=== PATIENT | female | born 1960 | race African-American/Black ===

== ENCOUNTER 2016-10-16 18:17 | Emergency (ER) | payer OTHER ==
[~2016-10-16 18:17] MED LIST: AMOXIL875 MG PO; ATARAX PO; AUGMENTIN PO; CAPOZIDE PO; CIPRO PO; FLEXERIL10 MG PO; HCTZ PO; HYDROCHLOROTHIA25 MG PO; HYDROXYZINE HCL25 M1 PO; IBUPROFEN800 MG PO; LORTAB 5/500 TA1 TA1 PO; MEDROL4 MG/DOSE- PO; METRONIDAZOLE PO; NAPROXEN PO; NORVASC PO; PEPCID AC20 M2 PO; PERMETHRIN60 GM TP; PREDNISONE PO; PYRIDIUM PO; STERAPRED5 MG/DOSE1 PO; TRAMADOL HCL50 M1 PO; ULTRAM PO; UNIVASC7.5 MG PO; VIBRAMYCIN100 M1 PO
== END 2016-10-16 18:20 | disposition home or self-care (01) ==
LOC: CFTX 18:17
DX: M10.9 Gout, unspecified (principal); I10 Essential (primary) hypertension; M19.90 Unspecified osteoarthritis, unspecified site
CPT/HCPCS: 99282

== ENCOUNTER 2016-11-01 16:39 | Inpatient (IN) | payer OTHER ==
--- NOTE | ~2016-11-01 | EKG ---
PATIENT: JEFFERY CAMERON UNIT #: [id number] Ventricular Rate: 91 BPM Atrial Rate: 91 BPM P-R Interval: 164 ms QRS Duration: 70 ms Q-T Interval: 386 ms QTC Calculation(Bezet): 474 ms P [place]: 55 degrees Calculated R [place]: -9 degrees Calculated T [place]: 17 degrees Diagnosis Line: Normal sinus rhythm Diagnosis Line: Normal ECG Diagnosis Line: When compared with ECG of 15-NOV-2012 06:12, Diagnosis Line: No significant change was found Diagnosis Line: Confirmed by FAHAD GALLEGO MD ([id number]) on 11/02/2016 Diagnosis Line: 5:43:01 PM INTERPRETING MD: JULIÁN HEBERT
--- NOTE | ~2016-11-01 | CR72 ---
[facility] A Service of [facility] RADIOLOGY TEXT RESULTS PATIENT: JEFFERY CAMERON LOCATION: [place] [address] : [birth year] UNIT #: [id number] AGE: [address]: Breanna Douglas MD SEX: F ORDER DR: [id number] [facility] [address] [place], [place] [address] [id number] I MR#: [id number] Acc #: [id number] NAME: JEFFERY CAMERON : 1960 SEX: F STUDY DATE/TIME: 11/01/2016 17:05 UNIT: [facility] ROOM: [facility] STUDY DESCRIPTION: CR Chest Single View Portable Attending Physician: Breanna Douglas M.D. Ordering Physician: Ed Doctor [id number] [facility] Primary Care Physician: [facility] MEDICAL IMAGING REPORT This report is preliminary unless electronic signature is present EXAM Single portable chest INDICATION Cough. Nausea and vomiting. Weakness and altered mental status. FINDINGS Single portable AP view of the chest is compared to 06/21/2013. Heart and mediastinal contours are normal. Lungs are clear. No pleural effusion. IMPRESSION Negative chest radiograph. Dictated by... Zeb Lackey M.D. THIS IS AN ELECTRONICALLY VERIFIED REPORT Zeb Lackey M.D. at 11/02/2016 8:39 AM Matthew TD: 11/02/2016 08:27 JOB #: [id number] MEDICAL IMAGING REPORT COPY
--- NOTE | ~2016-11-01 | A ---
[facility] Nutrition Therapy DATE: 11/02/16 Patient: JEFFERY CAMERON Physician: BLANCA Address: [address] [place] [address] Room/Bed: [address], Zip: [place] [address] Admit Date: 11/01/16 Date of : 62 Height: 5 2 Weight: 189 86 NUTRITIONAL ASSESSMENT: REASON: PT SEEN FOR DX, ALSO NPO IN ICU ASSESSMENT PT IS 55 Y.O. FEMALE ADMITTED FOR DKA PMH: NEWLY DIAGNOSED DM, LUPUS, HTN, ASTHMA Anthropometrics: 5'2", WT: 189# (85.9 KG), BMI: 34.6 Labs: GLU: 159, NA+:147, PHOS: 2.1, A1c: 10.8 (REFLECTS POOR GLUCOSE MANAGEMENT) Meds: PEPCID, ZOFRAN, NACL I/O & Bowel function: 2111/ Skin Integrity: NO KNOWN SKIN ISSUES Estimated Nutrition Needs: N/A Assessment: CHART REVIEWED AND EVENTS NOTED. PT SEEN FOR DX. PT CURRENTLY NPO 2' DKA PROTOCOL, INSULIN DRIP. PER RN AND CHART, PT NOTED TO HAVE N/V X 4 DAYS. PT REPORTS APPETITE IMPROVING, WANTING TO EAT. PT DENIES ANY RECENT WEIGHT LOSS. THIS RD PROVIDED WRITTEN AND VERBAL CC DIET EDUCATION. RD LISTED FOODS TO AVOID/LIMIT AND FOODS TO EAT MORE OFTEN. RD EMPHASIZED IMPORTANCE OF CONSUMING CONSISTENT MEAL SCHEDULE W/BALANCED MEALS. PT REPORTS DRINKING GINGERALE DAILY. RD ENCOURAGED PT TO CUT BACK ON GINGERALE AND DRINK MORE WATER, PT AGREED. PT REPORTED NO DIET QUESTIONS AT THIS TIME. RD TO REMAIN AVAILABLE. Dx: IMPAIRED GLYCEMIC CONTROL R/T DX AEB ELEVATED BLOOD SUGAR LEVELS, ELEVATED A1c. -ALTERED NUTRIENT NEEDS R/T DX AEB NPO STATUS, ALTERED LAB VALUES. Intervention: 1. NPO Monitoring, Evaluation and Goals: 1. PO INTAKE; PROVIDE AND CONSUME ADEQUATE NUTRITION W/NO C/O N/V/D (PO>50%) 2. LABS; WNL: GLU MONITOR: -DIET ADVANCEMENT -PO INTAKE/APPETITE -LABS (GLU) [facility] Nutrition Therapy DATE: 11/02/16 Patient: JEFFERY CAMERON Physician: BLANCA Address: [address] [place] [address] Room/Bed: [address], Zip: [place] [address] Admit Date: 11/01/16 Date of : [birth year] Height: 5 2 Weight: 189 86 Recommendations: 1. ONCE MEDICALLY FEASIBLE, ADVANCE DIET INDICATED TO CC 2'DX, ELEVATED BLOOD SUGAR LEVELS 2. CONTINUE TO OPTIMIZE BLOOD SUGAR REGIMEN 3. CONSULT RD IF FURTHER DIET EDUCATION REQUESTED/NEEDED RD WILL F/U PER PROTOCOL PT IS MILD/MODERATELY COMPROMISED Respectfully, FELISHA FLOWER MS, RD, LD Food and Nutritional Services [facility] cc: client file
--- NOTE | ~2016-11-01 | CO ---
Unit #: [id number] #: [id number] Patient: JEFFERY CAMERON [id number] [address] [place], [place] [address] [id number] I MR#: [id number] NAME: JEFFERY CAMERON. ROOM: [facility] Age: 55 Sex: F Admission Date: 11/01/2016 : 1960 Attending Physician: Edith Lan M.D. [facility] CONSULTATION REPORT HISTORY OF PRESENT ILLNESS Ms. Cameron is a pleasant 55-year-old lady with a longstanding history of lupus erythematosus, hypertension, and asthma. For the asthma, she is not taking any medication. She currently takes a burst of prednisone about every 6 months when she has an exacerbation. The patient now presents in significant DKA. She says for the past 3 to 4 days she has been having vomiting, anorexia, not so much diarrhea, positive fatigue, and positive body aches. The patient has not eaten for 3 to 4 days, so she stopped taking her home anti-glucose medications. The patient denies fevers, chills, headache, vision changes, any sort of hemoptysis, hematemesis. No significant shortness of breath. No sore throat. No known sick contacts. The patient is placed on insulin drip without any antibiotics. PAST MEDICAL HISTORY Significant for hypertension, diet-controlled diabetes mellitus, COPD, and bronchial asthma. ALLERGIES The patient has no known medical allergies. HOME MEDICATIONS Include hydrochlorothiazide 25 every morning, ranitidine 150 mg daily, and lisinopril 10 mg daily. REVIEW OF SYSTEMS As per the history of present illness. PAST SURGICAL HISTORY Significant for hysterectomy. FAMILY HISTORY Negative. SOCIAL HISTORY The patient is nonsmoker and nondrinker. No history of recreational substance use. PHYSICAL EXAMINATION VITAL SIGNS: T-current 97.6, pulse 77, respiratory rate 15, blood pressure 143/75, and saturating 98% on 2 L nasal cannula. CHEST: Shows decreased breath sounds bilaterally. CARDIOVASCULAR: Regular rate. No gallop. ABDOMEN: Soft, slightly tender, nondistended. No guarding. No rebound. EXTREMITIES: Show no significant edema. Unit #: [id number] #: [id number] Patient: JEFFERY CAMERON HEENT: Extraocular movements are intact on head. Normocephalic and atraumatic. Pupils are equal, round, and reactive to light. DIAGNOSTIC STUDIES LABORATORY RESULTS: BUN and creatinine of 32 and 1.2, potassium 3.9, bicarbonate 22, glucose 350, CK is 156, phosphorus 4.7, and magnesium is 3.0. Blood gas later today; 7.303, 39.8, and 76.3. Cardiac enzymes negative x2. ASSESSMENT AND PLAN 1. Diabetic ketoacidosis. The patient is on insulin drip. No precipitating event seen. The patient is on lisinopril, this has been held causing her blood pressure be a little high; however, the patient may be dehydrated. Therefore, we will not restart it for concern about mild renal insufficiency. We will monitor blood pressures and hopefully if creatinine improves in the morning, we can restart the medication. 2. Asthma, seems to be at baseline. 3. Lupus, apparently currently quiescent. The patient is following up with an outpatient vamper. Thank you very much for this consult and allowing us to participate in the care of this patient. Dictated by... Angela Kinney/clau TD: 11/02/2016 20:09 JOB #: [id number] CONSULTATION REPORT X Devonte Gant MD CONSULTATION REPORT
--- NOTE | ~2016-11-01 | HP ---
Unit #: [id number] #: [id number] Patient: JEFFERY CAMERON [id number] [facility] [address] [facility]. [place], [place] [address] [id number] I MR#: [id number] NAME: JEFFERY CAMERON. ROOM: [facility] Age: 55 Sex: F Admission Date: 11/01/2016 : 1960 Attending Physician: Breanna Douglas M.D. Primary Care Physician: [facility] HISTORY AND PHYSICAL CHIEF COMPLAINT Nausea, vomiting, weakness since Sunday. HISTORY OF PRESENT ILLNESS The patient is a 55-year-old female with a past medical history of lupus, hypertension, migraine headaches, asthma who presented to the emergency department for evaluation of the above. The patient states that she has not been feeling well since 10/28/2016. She states that she has been feeling increasingly generally weak and tired. She has had nausea and vomiting. She reports three bouts of nonbloody emesis within the past 24 hours. She denies any diarrhea. No abdominal pain. She has had increased thirst, as well as frequent urination. She denies any change in her weight. She denies any cough or cold symptoms. No fever. Upon arrival in the emergency department, the patient's pulse is 86, blood pressure 167/74. Initial blood sugar is 722 with a bicarb of 19, anion gap of 23. She was given 2 L of normal saline and started on an insulin drip. She is being admitted to [facility] for evaluation and further treatment. PAST MEDICAL HISTORY 1. Admission to [facility] 11/14/2012 for chest pain. She underwent a stress test that was negative. 2. Hypertension. 3. Lupus followed by [facility]. The patient states that she is on Plaquenil but that is not listed on the med rec. 4. Migraine headaches. 5. Asthma. PAST SURGICAL HISTORY Hysterectomy. SOCIAL HISTORY The patient lives with her . There is no tobacco or alcohol use. She works in childcare. FAMILY HISTORY Notable for her mother having diabetes. ALLERGIES No known allergies. Unit #: [id number] #: [id number] Patient: JEFFERY CAMERON HOME MEDICATIONS Lisinopril 10 mg daily; hydrochlorothiazide 25 mg daily; ranitidine 150 mg daily; amoxicillin 500 mg q.6 hours. REVIEW OF SYSTEMS A complete review of systems is negative except as indicated in the HPI. PHYSICAL EXAMINATION VITAL SIGNS: Temperature is 97.8, pulse 86, respirations 19, blood pressure 167/74, oxygen saturation is 90% on room air. GENERAL: The patient is an -[place] Citizen female who is sleepy but wakes to voice. HEENT: The head is atraumatic. Mucous membranes are dry. NECK: Supple. Trachea is midline. CARDIOVASCULAR: Regular rate and rhythm. LUNGS: Clear to auscultation bilaterally with no increased work of breathing. ABDOMEN: Soft, nontender with bowel sounds present in all four quadrants. EXTREMITIES: Nontender with no pedal edema. NEUROLOGIC: The patient is awake and alert. She follows commands. PSYCH: Mood and affect are normal. The patient is cooperative. SKIN: Skin of examined areas is warm and dry. DIAGNOSTIC STUDIES CARDIOLOGY STUDIES: EKG shows normal sinus rhythm with a rate of 91 BPM. IMAGING STUDIES: Chest x-ray is negative. LABORATORY STUDIES: Comprehensive metabolic panel is notable for bicarb of 19, glucose 722, anion gap is 23, BUN and creatinine 38 and 1.9 respectively. Calcium is 10.9, alk phos 139, total protein 10.5, beta-hydroxybutyrate is 6.59. Urinalysis notable for greater than 1,000 glucose, 2+ ketones, rapid flu screen is negative. Troponin is less than 0.05. Complete blood count notable for white blood cell count of 11.4. ASSESSMENT The patient is a 55-year-old female with: 1. DKA. The patient received 2 L of normal saline. 2. Anion gap metabolic acidosis with an anion gap of 23. 3. Acute kidney injury. The patient's creatinine is 1.9 today. It was 0.9 on 11/06/2012. 4. Generalized weakness. 5. Hypertension. 6. History of lupus. 7. Migraine headaches. 8. Asthma. PLAN 1. Admit to ICU. 2. NPO except ice chips. 3. DKA protocol with insulin drip to start now. 4. Check magnesium level. 5. PT and OT to evaluate and treat. 6. Serial cardiac enzymes. 7. P.r.n. Zofran. 8. P.r.n. Tylenol. 9. Consult Dr. Rodriguez regarding ICU admission. 10. Repeat labs in the morning including magnesium and phosphorus. Unit #: [id number] #: [id number] Patient: JEFFERY CAMERON 11. SCDs for DVT prophylaxis. 12. Additional workup and consultants based on above. 35 minutes critical care time spent in the care of this patient (6:30 to 7:05 p.m.). Dictated by Angela Hunter/aroldo TD: 11/02/2016 06:36 JOB #: [id number] HISTORY AND PHYSICAL X Breanna Douglas MD X HISTORY AND PHYSICAL
--- NOTE | ~2016-11-01 | CR63 ---
[facility] A Service of [facility] RADIOLOGY TEXT RESULTS PATIENT: JEFFERY CAMERON LOCATION: [facility] 225-01 : [birth year] UNIT #: [id number] AGE: [address]: GEOVANY LAN MD SEX: F ORDER DR: [id number] [facility] [address] [place], [place] [address] [id number] I MR#: [id number] Acc #: [id number] NAME: JEFFERY CAMERON. : 1960 SEX: F STUDY DATE/TIME: 11/04/2016 9:06 UNIT: [facility] ROOM: [facility] STUDY DESCRIPTION: CR Chest 2 View Attending Physician: Geovany Lan M.D. Ordering Physician: Christiane Gant M.D. Primary Care Physician: [facility] MEDICAL IMAGING REPORT This report is preliminary unless electronic signature is present EXAM Chest 2 views 11/04/2016 HISTORY 55-year-old female with shortness of air since 11/01/2016. COMPARISON Chest 11/01/2016. FINDINGS 2 views of the chest demonstrate clear lungs. No pleural effusion or pneumothorax. Heart size and mediastinum are normal. Pulmonary vasculature normal. IMPRESSION No acute cardiopulmonary findings. Dictated by... Nikko Forman M.D. THIS IS AN ELECTRONICALLY VERIFIED REPORT Nikko Forman M.D. at 11/06/2016 7:42 AM CELINA/zia TD: 11/05/2016 07:57 JOB #: [id number] MEDICAL IMAGING REPORT COPY
--- NOTE | ~2016-11-01 | CO ---
Unit #: [id number] #: [id number] Patient: JEFFERY CAMERON [id number] [address] [address] [id number] I MR#: [id number] NAME: JEFFERY CAMERON. ROOM: [facility] Age: 55 Sex: F Admission Date: 11/01/2016 : 1960 Attending Physician: Edith Lan M.D. Primary Care Physician: [facility] [place] Consultation Date: 11/02/2016 CONSULTATION REPORT REASON FOR CONSULTATION Diabetic ketoacidosis. HISTORY OF PRESENT ILLNESS This is a 55-year-old black female, who presented to the emergency room for not feeling well over the last 3 to 4 days. She has been reporting increasing generalized weakness, fatigue, nausea, vomiting but no diarrhea or abdominal pain. She has reported increased frequency of urination and increased thirst. She denies any weight loss. On her arrival in the emergency room, she was found to be hypertensive with a blood pressure 167/74, blood glucose was over 722 with some low bicarb and anion gap of 23 and positive ketones. She was admitted to the unit bed, where insulin drip was started and IV hydration was started. I have been asked to see the patient for further management. PAST MEDICAL HISTORY History of lupus, asthma, and migraine headache. PAST SURGICAL HISTORY Hysterectomy. SOCIAL HISTORY Lives with her . Has no tobacco or alcohol use. FAMILY HISTORY Noncontributory. ALLERGIES None. HOME MEDICATIONS Lisinopril 10 mg daily, hydrochlorothiazide 25 mg daily, ranitidine, and amoxicillin. REVIEW OF SYSTEMS A 12-point review of systems completed, is unremarkable except as noted in HPI. PHYSICAL EXAMINATION GENERAL: She is awake, alert, and oriented to time, place, and person. VITAL SIGNS: Stable, temperature 97.5, pulse 76, respirations 12, blood pressure 144/84. HEENT: EOMI. Pupils equally reactive to light. NECK: Supple. No thyromegaly noted. Unit #: [id number] #: [id number] Patient: JEFFERY CAMERON CHEST: Good air entry. CVS: Regular rhythm. No murmurs. ABDOMEN: Soft, nontender. Bowel sounds positive. EXTREMITIES: No edema noted. NEURO: Nonfocal. DIAGNOSTIC STUDIES LABORATORY RESULTS: Her A1c is 10.8%. Positive ketones. Sodium 147, potassium 3.6, chloride 121, CO2 is 22. ASSESSMENT 1. Newly diagnosed diabetes mellitus with mild diabetic ketoacidosis. Most likely, the patient has the type 2 diabetes mellitus with ketosis. 2. Hypernatremia. 3. Dehydration, improved. PLAN The patient's symptoms have resolved. She is hungry at this time. She has no nausea and vomiting. We will start advancing diet to consistent carb with 45 g per meal. Get nutrition consult. Start Levemir 40 units at daily at bedtime, NovoLog 8 units each meal plus supplemental insulin as needed. Accu-Cheks a.c. and h.s. Discontinue insulin drip and discontinue IV fluids. We will continue to follow for further management. Dictated by... Angela Real/clau TD: 11/03/2016 06:23 JOB #: [id number] CONSULTATION REPORT X Haresh Gray MD X CONSULTATION REPORT
--- NOTE | ~2016-11-01 | DS ---
Unit #: [id number] #: [id number] Patient: JEFFERY CAMERON [id number] [address] [address] [id number] I MR#: [id number] NAME: JEFFERY CAMERON. ROOM: [facility] Age: 55 Sex: F Admission Date: 11/01/2016 : 1960 Discharge Date: 11/04/2016 Attending Physician: Edith Lan M.D. Primary Care Physician: [facility] DISCHARGE SUMMARY The patient is being seen for HIPS. ADMITTING DIAGNOSES Hyperglycemia and hypertension. DISCHARGE DIAGNOSES 1. Newly diagnosed type 2 diabetes mellitus with ketosis. 2. Hypertension. 3. Hypokalemia, insulin dependence. HISTORY OF PRESENT ILLNESS This is a 55-year-old black female, who was admitted on 11/01/2016 for not feeling well over the last 3 to 4 days duration. Her symptoms were increased frequency of urination, thirst, fatigue. Her blood glucose level was over 700 in the ER and she has anion gap of 23 with positive ketones and elevated blood pressure. She was admitted into the ICU for the mild diabetic ketoacidosis, treated with the insulin drip and IV fluids. Her electrolytes were monitored closely. The potassium and phosphorus were replaced as needed. Her DKA resolved, transferred to the floor where she has been doing very well. Currently, she is on subcu insulin. The patient is stable to be discharged home. HOME MEDICATIONS Include insulin Levemir 30 units subcu b.i.d., NovoLog 10 units each meal, hydrochlorothiazide 25 mg daily, lisinopril 10 mg daily, atorvastatin 20 mg daily, ranitidine 150 mg daily. CONDITION AT DISCHARGE Stable. FOLLOWUP Follow with primary care physician. DISPOSITION To home. Dictated by... Angela Real/clau TD: 11/04/2016 18:14 Unit #: [id number] #: [id number] Patient: JEFFERY CAMERON JOB #: [id number] DISCHARGE SUMMARY X Haresh Gray MD DISCHARGE SUMMARY
[2016-11-01 17:03] LABS: BASOPHIL# 0.1 X10e3 (0-0.3); BASOPHIL% 0.7 % (0-2.5); EOSINOPHIL% 0.4 % (0.0-7.0); HEMATOCRIT 44.6 % (35.0-45.0); HEMOGLOBIN 14.4 gm/dL (12.0-16.0); LYMPHOCYTE# 2.4 X10e3 (1.0-3.5); LYMPHOCYTE% 21.3 % (17.0-45.0); MEAN CELL VOLUME 90.3 FL (83-96); MEAN CORPUSCULAR HEMOGLOBIN 29.1 PG (28-34); MEAN CORPUSCULAR HGB CONC 32.3 g/dL (30-36); MEAN PLATELET VOLUME 11.1 FL (6.5-11.5); MONOCYTE# 0.8 X10e3 (0-1.0); MONOCYTE% 6.9 % (3.0-12.0); NEUTROPHIL# 8.1 X10e3 (1.5-7.1); NEUTROPHIL% 70.7 % (40-75); PLATELET COUNT 274 X10e3 (140-420); RED BLOOD COUNT 4.94 X10e (3.90-5.30); WHITE BLOOD COUNT 11.4 X10e3 (4.0-10.5)
[2016-11-01] MEDS ORDERED: HYDROCHLOROTHIA25 MG PO (17:03)
[2016-11-01] MEDS ORDERED: LISINOPRIL10 MG PO (17:03)
[2016-11-01 17:04] LABS: DIFF IND NO
[2016-11-01] MEDS ORDERED: RANITIDINE HCL150 M1 PO (17:04)
[2016-11-01] MEDS ORDERED: AMOXICILLIN500 M1 PO (17:05)
[2016-11-01 17:11] LABS: POC - CKMB <1.0 ng/mL (0.0-7.9); POC - TROPONIN <0.05 ng/mL (<=0.05)
[2016-11-01 17:19] LABS: INFLUENZA A NEG (NEG); INFLUENZA B NEG (NEG)
[2016-11-01 17:29] LABS: ALBUMIN SERUM 4.9 g/dL (3.5-5.0); ALKALINE PHOSPHATASE 139 U/L (32-92); ALT (SGPT) 29 U/L (10-40); AST (SGOT) 25 U/L (10-42); BETA HYDROXYBUTYRATE 6.59 MMOL/L (0.02-0.27); BILIRUBIN,TOTAL 1.1 mg/dL (0.2-2.0); BLOOD UREA NITROGEN 38 mg/dL (9-23); CALCIUM SERUM 10.9 mg/dL (8.4-10.2); CARBON DIOXIDE 19 mmol/L (22-31); CHLORIDE 100 mmol/L (100-111); CREATININE SERUM 1.9 mg/dL (0.6-1.4); GLOM FILT RATE Estimated 35.4 mL/min (>60); PROTEIN TOTAL SERUM 10.5 g/dL (6.0-8.3); SODIUM 142 mmol/L (135-145)
[2016-11-01 17:33] LABS: BILIRUBIN, DIRECT <0.1 mg/dL (0.0-0.2); GLUCOSE FASTING 722 mg/dL (70-110)
[2016-11-01 17:51] LABS: URINE SOURCE CLEAN CATCH
[2016-11-01 18:05] LABS: URINE APPEARANCE CLEAR; URINE BILIRUBIN NEG (NEG); URINE BLOOD NEG (NEG); URINE COLOR YELLOW; URINE GLUCOSE >1000 MG/DL (NEG); URINE KETONE 2+ (NEG); URINE LEUKOCYTE ESTERASE NEG (NEG); URINE NITRATE NEG (NEG); URINE PROTEIN NEG (NEG); URINE SPECIFIC GRAVITY 1.035 (1.003-1.035); URINE UROBILINOGEN 0.2 MG/DL (NEG)
[2016-11-01 18:07] LABS: CULTURE INDICATED? NO
[2016-11-01 19:57] LABS: PHOSPHOROUS 4.7 mg/dL (2.5-4.6)
[2016-11-01 20:23] LABS: %MB 0.6 % (0.0-4.0)
[2016-11-01 20:34] LABS: ARTERIAL BLD GAS O2 SATURATION 92.9 % (90.0-100.0); ARTERIAL BLOOD GAS CARBOXY HB 0.9 %sat (0.0-9.0); ARTERIAL BLOOD GAS HCO3 19.7 mmol/L; ARTERIAL BLOOD GAS MET HB 1.2 %sat (0.0-2.0); ARTERIAL BLOOD GAS PCO2 39.8 mmHg (35.0-45.0); ARTERIAL BLOOD GAS pH 7.303 (7.350-7.450)
[2016-11-01 20:36] LABS: ARTERIAL BLOOD GAS ALLEN TEST NORMAL; ARTERIAL BLOOD GAS ART SITE LEFT RADIAL; ARTERIAL BLOOD GAS PO2 76.3 mmHg (80.0-100); ARTERIAL DRAW? YES
[2016-11-01 23:50] LABS: BLOOD UREA NITROGEN 33 mg/dL (9-23); CALCIUM SERUM 9.9 mg/dL (8.4-10.2); CARBON DIOXIDE 22 mmol/L (22-31); CHLORIDE 112 mmol/L (100-111); CREATININE SERUM 1.2 mg/dL (0.6-1.4); GLOM FILT RATE Estimated ABOVE60 mL/min (>60); GLUCOSE FASTING 350 mg/dL (70-110); POTASSIUM 3.9 mmol/L (3.5-5.1); SODIUM 148 mmol/L (135-145)
[2016-11-02 02:42] LABS: BLOOD UREA NITROGEN 29 mg/dL (9-23); BUN/CREATININE RATIO 26.36; CARBON DIOXIDE 24 mmol/L (22-31); CHLORIDE 119 mmol/L (100-111); CREATININE SERUM 1.1 mg/dL (0.6-1.4); GLOM FILT RATE Estimated ABOVE60 mL/min (>60); GLUCOSE FASTING 267 mg/dL (70-110); SODIUM 147 mmol/L (135-145)
[2016-11-02 02:58] LABS: %MB 0.3 % (0.0-4.0); MB 0.8 ng/ml
[2016-11-02 06:39] LABS: BLOOD UREA NITROGEN 26 mg/dL (9-23); BUN/CREATININE RATIO 23.63; CALCIUM SERUM 9.6 mg/dL (8.4-10.2); CARBON DIOXIDE 26 mmol/L (22-31); CHLORIDE 119 mmol/L (100-111); CREATININE SERUM 1.1 mg/dL (0.6-1.4); GLOM FILT RATE Estimated ABOVE60 mL/min (>60); GLUCOSE FASTING 192 mg/dL (70-110); POTASSIUM 3.7 mmol/L (3.5-5.1); SODIUM 152 mmol/L (135-145)
[2016-11-02 07:30] LABS: %MB 0.3 % (0.0-4.0); MB 0.9 ng/ml
[2016-11-02 12:52] LABS: BLOOD UREA NITROGEN 23 mg/dL (9-23); CALCIUM SERUM 9.1 mg/dL (8.4-10.2); CARBON DIOXIDE 22 mmol/L (22-31); CHLORIDE 121 mmol/L (100-111); GLOM FILT RATE Estimated ABOVE60 mL/min (>60); GLUCOSE FASTING 159 mg/dL (70-110); POTASSIUM 3.6 mmol/L (3.5-5.1); SODIUM 147 mmol/L (135-145)
[2016-11-02 16:22] LABS: URINE APPEARANCE CLOUDY; URINE BILIRUBIN NEG (NEG); URINE BLOOD 3+ (NEG); URINE COLOR YELLOW; URINE GLUCOSE 500 MG/DL (NEG); URINE KETONE 1+ (NEG); URINE LEUKOCYTE ESTERASE TRACE (NEG); URINE NITRATE NEG (NEG); URINE PH 5.5 (5-8); URINE PROTEIN 2+ (NEG); URINE SPECIFIC GRAVITY 1.026 (1.003-1.035); URINE UROBILINOGEN 0.2 MG/DL (NEG)
[2016-11-02 16:25] LABS: URINE BACTERIA AUWI NEG (NEGATIVE); URINE SQUAMOUS EPITHELIAL CELL OCC /[HPF]
[2016-11-02 16:28] LABS: CULTURE INDICATED? NO
[2016-11-03 03:37] LABS: BASOPHIL# 0.1 X10e3 (0-0.3); EOSINOPHIL# 0.1 X10e3 (0-0.7); HEMATOCRIT 37.3 % (35.0-45.0); LYMPHOCYTE# 2.4 X10e3 (1.0-3.5); LYMPHOCYTE% 26.4 % (17.0-45.0); MEAN CELL VOLUME 87.7 FL (83-96); MEAN CORPUSCULAR HEMOGLOBIN 29.1 PG (28-34); MEAN CORPUSCULAR HGB CONC 33.2 g/dL (30-36); MEAN PLATELET VOLUME 10.1 FL (6.5-11.5); MONOCYTE# 0.4 X10e3 (0-1.0); MONOCYTE% 4.1 % (3.0-12.0); NEUTROPHIL# 6.1 X10e3 (1.5-7.1); NEUTROPHIL% 67.5 % (40-75); PLATELET COUNT 201 X10e3 (140-420); RED BLOOD COUNT 4.26 X10e (3.90-5.30); RED CELL DISTRIBUTION WIDTH 12.9 % (11.0-15.5)
[2016-11-03 03:38] LABS: DIFF IND NO; HEMOGLOBIN 12.4 gm/dL (12.0-16.0)
[2016-11-03 04:03] LABS: BUN/CREATININE RATIO 15.33; CALCIUM SERUM 8.6 mg/dL (8.4-10.2); CREATININE SERUM 1.5 mg/dL (0.6-1.4); GLOM FILT RATE Estimated 46.5 mL/min (>60); POTASSIUM 3.4 mmol/L (3.5-5.1)
[2016-11-04 07:01] LABS: BASOPHIL% 0.1 % (0-2.5); DIFF IND NO; EOSINOPHIL% 0.7 % (0.0-7.0); HEMATOCRIT 33.5 % (35.0-45.0); HEMOGLOBIN 11.1 gm/dL (12.0-16.0); LYMPHOCYTE% 37.1 % (17.0-45.0); MEAN CELL VOLUME 87.7 FL (83-96); MEAN CORPUSCULAR HGB CONC 33.1 g/dL (30-36); MEAN PLATELET VOLUME 9.6 FL (6.5-11.5); MONOCYTE# 0.2 X10e3 (0-1.0); MONOCYTE% 4.4 % (3.0-12.0); NEUTROPHIL# 3.2 X10e3 (1.5-7.1); NEUTROPHIL% 57.7 % (40-75); PLATELET COUNT 133 X10e3 (140-420); RED BLOOD COUNT 3.82 X10e (3.90-5.30); RED CELL DISTRIBUTION WIDTH 12.8 % (11.0-15.5); WHITE BLOOD COUNT 5.5 X10e3 (4.0-10.5)
[2016-11-04 07:32] LABS: BLOOD UREA NITROGEN 17 mg/dL (9-23); BUN/CREATININE RATIO 15.45; CALCIUM SERUM 8.8 mg/dL (8.4-10.2); CARBON DIOXIDE 21 mmol/L (22-31); CHLORIDE 109 mmol/L (100-111); CREATININE SERUM 1.1 mg/dL (0.6-1.4); GLOM FILT RATE Estimated ABOVE60 mL/min (>60); GLUCOSE FASTING 213 mg/dL (70-110); POTASSIUM 3.2 mmol/L (3.5-5.1); SODIUM 139 mmol/L (135-145)
[2016-11-04] MEDS ORDERED: LIPITOR20 MG PO (11:31)
[2016-11-04] MEDS ORDERED: NOVOLOG100 U/M2 SUBQ (11:32)
[2016-11-04] MEDS ORDERED: LEVEMIR FL100 UNIT/1 SUBQ (11:33)
== END 2016-11-04 12:34 | disposition home or self-care (01) | DRG 682 ==
LOC: CED 16:39 → CEDOF 19:05 → CICCU2 22:21 → C2A 11-03 15:04
PROVIDERS: Emergency Medicine; Family Medicine; Internal Medicine; Internal Medicine Pulmonary Disease
DX: N17.9 Acute kidney failure, unspecified (principal); E13.10 Other specified diabetes mellitus with ketoacidosis without coma; E87.0 Hyperosmolality and hypernatremia; M32.9 Systemic lupus erythematosus, unspecified; E86.0 Dehydration; I10 Essential (primary) hypertension; E87.6 Hypokalemia; Z79.4 Long term (current) use of insulin; J45.909 Unspecified asthma, uncomplicated; Z90.710 Acquired absence of both cervix and uterus
CPT/HCPCS: 36415; 36600; 71010; 71020; 80048; 80076; 81003; 82010; 82150; 82550; 82553; 82803; 82947; 83036; 83690; 83735; 84100; 84484; 85025; 87040; 87633; 87804; 93005; 94640; 94760; 96361; 96374; 97116; 97162; 97166; 97530; 99285; G8978-GP; G8979-GP; J1200; J1815; J2405